=== PATIENT | male | born 1990 | race Two or more races ===

== ENCOUNTER 2017-09-24 13:51 | Emergency (ER) | payer OTHER ==
[2017-09-24 14:07] VITALS: BP 181/113; PULSE 79; RESP 18; TEMP 99.1; O2SAT 97
--- NOTE | 2017-09-24 15:06 | EDPHY ---
H & P Stated Complaint: Rolled L ankle stepping off curb Time Seen by Provider: 09/24/17 14:59 - Personal History Current Tetanus Diphtheria and Acellular Pertussis (TDAP): Unsure - Social History Smoking Status: Never smoked Constitutional: Initial Vital Signs Temperature (C) 37.3 C 09/24/17 13:55 Heart Rate 79 09/24/17 13:55 Respiratory Rate 18 09/24/17 13:55 Blood Pressure 181/113 H 09/24/17 13:55 O2 Sat (%) 97 09/24/17 13:55 O2 Delivery Mode Room Air Allergies/Adverse Reactions: No Known Allergies Allergy (Unverified 09/24/17 14:07) Home Medications: Medication Instructions Recorded Ibuprofen [Motrin] 800 mg PO Q8 #20 tab 09/24/17 Medical Decision Making - Diagnostics Imaging: I viewed and interpreted images myself ED Course/Re-evaluation: CHIEF COMPLAINT: Left ankle injury HISTORY OF PRESENT ILLNESS: The patient is a 26 y/o male complaining of left ankle pain after he "rolled it off a sloped sidewalk" 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 He describes a mechanical injury only and denies any preceding symptoms. He did not fall and denies any other injuries including head strike, neck pain, back pain, or other extremity injury. Denies pertinent medical history. REVIEW OF SYSTEMS: A 10 point review of systems was performed and is negative with the exception of the elements mentioned in the history of present illness. PHYSICAL EXAM: HR, BP, O2 Sat, RR. Temp noted General Appearance: Alert, well hydrated, appropriate, and non-toxic appearing. Obese. Head: Atraumatic without scalp tenderness or obvious injury Eyes: Pupils equal, round, reactive to light and accommodation, EOMI, no trauma , no injection. Nose: Atraumatic, no rhinorrhea, clear. Neck: Supple Respiratory: No distress Cardiovascular: Normal left dorsalis pedis and posterior tibial pulses. Good capillary refill all extremities. Musculoskeletal: Left ankle: stable ankle with lateral swelling and tenderness, ROM limited by pain. Other extremities atraumatic. Neurological: Alert, appropriate, and interactive. The patient has normal motor and sensory function of left ankle. Moving all extremities. Skin: No rashes, good turgor, no nodules on palpation. PAST MEDICAL HISTORY: Denies PAST SURGICAL HISTORY: Noncontributory SOCIAL HISTORY: Employed at [employer]. This is a workman's comp injury. Lives in [place]/ DIAGNOSTICS/PROCEDURES/CRITICAL CARE TIME: Left ankle x-ray: No osseous injury, lateral soft tissue swelling. DIFFERENTIAL DIAGNOSIS: The differential diagnosis for the patient's injury included but was not limited to fracture, ligamentous injury, contusion, muscular strain. MEDICAL DECISION MAKING: This is a 26 y/o male who presents with tenderness and swelling over his left lateral ankle after rolling it while at work. He denies any other trauma. He is neurovascularly intact. X-rays show soft tissue swelling only, no evidence of fracture. He will be placed in a stirrup splint and discharged with standard sprain care and follow up instructions. He understands he needs to contact his HR department regarding workman's comp. Return precautions discussed. He is comfortable with this plan. Splint placement reevaluated by myself prior to discharge. CMS remains intact. Patient can use crutches and weight-bear as tolerated. Departure - Departure Disposition: Home, Routine, Self-Care Clinical Impression: Left ankle sprain Qualifiers: Encounter type: initial encounter Involved ligament of ankle: anterior talofibular ligament Qualified Code(s): S93.492A - Sprain of other ligament of left ankle, initial encounter Condition: Good Instructions: Ankle Sprain (ED), Ankle Stirrup Splint (ED) Additional Instructions: 1. Take 800mg ibuprofen every 6-8 hours for the next several days for pain and swelling. 2. Apply ice to swollen areas and keep elevated when possible. 3. Bear weight as tolerated. Suggest starting with crutches and slowly advancing activity as tolerated. 4. Contact your HR department to determine appropriate clinic follow up. 5. Please be sure to follow up with an orthopedist within 1 week. You've been referred to a local orthopedist, Dr. Card, as an option. 6. Keep splint in place and dry until your follow up appointment. 7. You will not be able to return to work until you are cleared by the orthopedist. 8. Return to the ED for worsening of condition including severe pain, dramatic increase in swelling, numbness or weakness in your foot, or other worsening of condition. Referrals: Karel Card MD [Medical Doctor] - As per Instructions Prescriptions: Ibuprofen [Motrin] 800 mg PO Q8 #20 tab Report Scribed for: Darren Lyons Report Scribed by: Ashli Cardoso Date of Report: 09/24/17 Time of Report: 15:01
== END 2017-09-24 15:25 | disposition home or self-care (01) ==
DX: S93.492A Sprain of other ligament of left ankle, initial encounter (principal); X58.XXXA Exposure to other specified factors, initial encounter; Y92.480 Sidewalk as the place of occurrence of the external cause; Y99.0 Civilian activity done for income or pay; Y93.89 Activity, other specified
CPT/HCPCS: L4350